=== PATIENT | female | born 1995 | race Caucasian/White ===

== ENCOUNTER → 2018-03-13 11:38 | Outpatient (CLI) | payer OTHER, MEDICAID, SELFPAY ==
[2018-03-13 17:14] LABS: HIV 1 and 2 Antibody NEGATIVE (NEGATIVE); Hep C Virus Ab w/Reflex Quant NEGATIVE s/c (NEGATIVE)
[2018-03-17 16:05] LABS: HSV 2 IGG AB < 0.90 index (< 0.90); HSV1IGG < 0.90 index (< 0.90)
== END ==
DX: Z11.3 Encounter for screening for infections with a predominantly sexual mode of transmission (principal)
CPT/HCPCS: 36415; 86592; 86695; 86696; 86703; 86803

== ENCOUNTER → 2018-07-17 10:02 | Outpatient (CLI) | payer OTHER, MEDICAID, SELFPAY ==
[2018-07-17 11:17] LABS: HCG Quantitative /Beta subunit < 2.39 mIU/mL
[2018-07-17 12:16] LABS: Alanine Aminotransferase 23 IU/L (9-52); Albumin 4.9 g/dL (3.5-5.0); Alkaline Phosphatase 82 U/L (38-126); Aspartate Aminotransferase 20 IU/L (14-36); BUN Creatinine Ratio 14.3 (6-22); Bilirubin Total 2.3 mg/dL (0.2-1.3); Bilirubin Unconjugated 1.9 mg/dL (0.0-1.1); Blood Urea Nitrogen 10 mg/dL (7-17); Estimated Glomerular Filt Rate > 60.0 mL/min (>60); Globulin 2.5 g/dL (1.7-4.1); HEMOLYSIS < 15 (0-50); Total Protein 7.4 g/dL (6.3-8.2)
== END ==
DX: N91.2 Amenorrhea, unspecified (principal); R10.2 Pelvic and perineal pain
CPT/HCPCS: 36415; 80076; 82565; 84520; 84702

== ENCOUNTER → 2018-07-22 19:25 | Outpatient (CLI) | payer OTHER, MEDICAID, SELFPAY ==
[2018-07-22 19:46] LABS: Add Manual Diff / Slide Review NO; Basophils Percent Auto 0.7 % (0-2); Eosinophils Percent Auto 6.2 % (2-4); Hematocrit 36.8 % (36-46); Hemoglobin 12.5 g/dL (12.0-16.0); Lymphocytes Percent Auto 25.3 % (25-40); Mean Corpuscular Hemoglobin 28.9 PG (26-34); Monocytes Percent Auto 8.8 % (3-14); Neutrophils Absolute Auto 3200 /uL (3000-5900); Platelet Count 230 X10^3/uL (150-400); Red Blood Cell Count 4.33 X10^6/uL (4.0-5.2); Red Cell Distribution Width 13.3 % (11.6-14.8); White Blood Cell Count 5.4 X10^3/uL (4.5-11.0)
== END ==
DX: R10.2 Pelvic and perineal pain (principal)
CPT/HCPCS: 36415; 85025; 86850